=== PATIENT | female | born 1990 | race Hispanic/Latino ===

== ENCOUNTER 2025-03-30 09:13 | Emergency (ER) | payer OTHER ==
[~2025-03-30] VITALS: Ht 162.6 cm; Wt 85.3 kg
[2025-03-30 09:30] VITALS: TEMP 98.8
[2025-03-30 10:14] LABS: BASOPHILS % 0.4 % (0.0-1.0); EOSINOPHILS % 0.5 % (0.0-6.0); LYMPHOCYTES % 21.0 % (18.0-39.1); MONOCYTES % 6.0 % (4.4-11.3); NEUTROPHILS % 71.7 % (38.7-80.0); RED CELL DISTRIBUTION WIDTH 13.2 % (11.7-14.4)
[2025-03-30 10:23] LABS: PREGNANCY TEST, URINE NEGATIVE (NEGATIVE)
[2025-03-30] MEDS ORDERED: IOPAMIDOL 370 MG/ML 100 ML INFUS..BTL INJ ONE (10:30)
[2025-03-30 10:32] LABS: EPITHELIAL CELLS,URINE FEW /LPF; LEUKOCYTE ESTERASE ,URINE NEGATIVE (NEGATIVE); PROTEIN,URINE DIPSTICK NEGATIVE (NEGATIVE); URINE UROBILINOGEN 0.2 mg/dL (0.2 - 1); WBC,URINE (MAN) 0-5 /HPF (0-5)
[2025-03-30] MEDS: LIDOCAINE VISC 2% SOLN 15 ML UDC PO STA (10:35)
[2025-03-30] MEDS: MAGNESIUM/ALUMINUM/SIMETHICONE 30 ML UDC PO STA (10:35)
[2025-03-30] MEDS: BELLADONNA ALK/PHENOBARBITAL 5 ML UDC PO ONE (10:36)
[2025-03-30 10:40] LABS: EST GLOMERULAR FILTRATION RATE 100.0 ML/MIN (>=60)
[2025-03-30] MEDS ORDERED: ONDANSETRON ODT4 MG PO (11:50)
[2025-03-30] MEDS ORDERED: PEPCID20 MG PO (11:50)
[2025-03-30 12:59] VITALS: PULSE 89; RESP 19
[2025-03-30 13:02] VITALS: BP 127/76; PULSE 89; RESP 19; O2SAT 98
== END 2025-03-30 12:40 | disposition home or self-care (01) ==
LOC: ER 09:23
DX: R10.13 Epigastric pain (principal); D64.9 Anemia, unspecified; F41.9 Anxiety disorder, unspecified
CPT/HCPCS: 36415; 74177; 80053; 81001; 81003; 81025; 83690; 85025; 99284; Q9967